=== PATIENT | male | born 2000 | race Caucasian/White ===

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

== ENCOUNTER → 2020-05-12 | Outpatient (CLI) | payer BC | LOC: COL.LAB 09:16 | DX: U07.1 COVID-19 (principal) ==